=== PATIENT | female | born 1990 | race Caucasian/White ===

== ENCOUNTER 2023-03-10 12:39 | Emergency (ER) | payer OTHER, SELFPAY ==
[2023-03-10] VITALS (17 sets, daily range): BP systolic 129–183; BP diastolic 75–107; PULSE 76–134; RESP 9–18; TEMP 36.7; O2SAT 100
--- NOTE | ~2023-03-10 | XR_ITS ---
EXAMINATION: XR chest 2V DATE: 03/10/2023 13:14 INDICATION: Tachycardia. TECHNIQUE: Frontal and lateral views of the chest were obtained. COMPARISON: Chest 2 views 06/07/2017, CT abdomen and pelvis 09/21/2014 FINDINGS: The chest demonstrates clear lungs without pneumonia, pleural effusion, or pneumothorax. Th e heart size is normal. IMPRESSION: 1. No acute cardiopulmonary disease. Reviewed, dictated and finalized at location A.
--- NOTE | 2023-03-10 12:53 | ECG_ITS ---
Measurements Intervals [place] Rate: 135 P: 48 PA: 112 QRS: 50 QRSD: 85 T: 22 QT: 372 QTc: 559 Interpretive Statements SINUS TACHYCARDIA WITH SHORT PA INTERVAL NONSPECIFIC ST & T-WAVE ABNORMALITY- INFERIOR LEADS BASELINE ARTIFACT- I, II, III, AVR, AVL, AVF ABNORMAL ECG NO PREVIOUS ECG AVAILABLE FOR COMPARISON Electronically Signed On 03-10-2023 13:35:10 CDT by Red Jones D.O.
[2023-03-10] MEDS: ASPIRIN 81 MG CHEWABLE TABLET 324 MG PO (13:03)
[2023-03-10 13:07] LABS: Basophils Percent Auto 0.3 % (0.2-1.2); Eosinophils Absolute Auto 0.1 K/mm3 (0-0.3); Eosinophils Percent Auto 0.9 % (0-4.4); Hematocrit 41.9 % (37.0-47.0); Hemoglobin 14.1 g/dL (12.0-15.0); Immature Granulocyte Absolute 0.02 K/mm3 (0.00-0.031); Immature Granulocyte Percent A 0.3 % (0-0.5); Lymphocytes Absolute Auto 1.17 K/mm3 (0.9-3.2); Lymphocytes Percent Auto 16.8 % (18.3-44.2); Mean Corpuscular HGB Conc 33.7 g/dl (32-36); Mean Corpuscular Hemoglobin 27.9 pg (26-34); Mean Corpuscular Volume 82.8 fl (80-100); Mean Platelet Volume 9.6 fl (7.4-10.4); Monocytes Absolute Auto 0.4 K/mm3 (0.1-0.6); Monocytes Percent Auto 5.7 % (2.6-8.5); Neutrophils Absolute Auto 5.3 K/mm3 (1.3-6.7); Platelet Count Result 293 k/mm3 (150-375); Red Blood Count 5.06 M/mm3 (4.2-5.4); Red Cell Distribution Width 13.2 % (11.5-14.5)
[2023-03-10 13:17] LABS: Partial Thromboplastin Time 29.6 SECONDS (22.3-36.8); Prothrombin Time 13.2 Seconds (11.1-14.7)
[2023-03-10 13:18] LABS: Alanine Aminotransferase 31 U/L (6-35); Alkaline Phosphatase 62 U/L (38-126); Anion Gap 12 mmol/L (8-16); Aspartate Amino Transferase 24 U/L (14-36); Bilirubin,Total 0.6 mg/dL (0.2-1.3); Blood Urea Nitrogen 10 mg/dL (7-17); Calcium 9.4 mg/dL (8.4-10.2); Carbon Dioxide 25 mmol/L (22-30); Chloride 104 mmol/L (98-107); Estimated CRCL calculation 119 ml/min; Estimated Glomerular Filt Rate > 60; Glucose 119 mg/dL (65-110); Lipase 118 U/L (23-300); Potassium 3.6 mmol/L (3.4-5.0); Sodium 141 mmol/L (137-145)
[2023-03-10 13:30] LABS: Troponin I 0.015 ng/mL (0.000-0.034)
[2023-03-10] MEDS: LACTATED RINGERS 1,000 ML 999 ML IV CONT (14:12)
[2023-03-10 14:26] LABS: D Dimer 0.36 ug/mL (<0.48)
--- NOTE | 2023-03-10 15:36 | PC.NURSE ---
Pt's NSS is finished. RN disconnects pt at 1533.
--- NOTE | 2023-03-10 16:20 | ED.ARRPALP ---
HPI - Arrhythmia/Palpitations General Chief Complaint: Arrhythmia/Palpitations Stated Complaint: racing HR Time Seen by Provider: 03/10/23 13:11 History of Present Illness HPI narrative: 32-year-old female with history of likely panic attacks presents with palpitations, she has had multiple episodes of palpitations but they have been increasing over the last month, she has been seen and had negative work-up for this in the past, they usually resolve after she takes her as needed Xanax ordered by her doctor. No chest pain or trouble breathing nausea or vomiting. Related Data Allergies Allergy/AdvReac Type Severity Reaction Status Date / Time No Known Allergies Allergy Unverified 06/12/18 15:39 Review of Systems Review of Systems: CONST: No fever. HEENT: No sore throat C/V: Palpitations RESP: No cough GI: no abdominal : No dysuria. M/S: No joint pain. SKIN: No rash. NEURO: [No headache or focal numbness or weakness] PSYCH: Anxiety Exam Narrative: EXAMINATION OF ORGAN SYSTEMS/BODY AREAS: Constitutional: Vital signs per nursing GENERAL: Slightly anxious/tearful HEAD: Normal with no signs of head trauma. EYES: EOMI, conjunctiva normal ENT: Hearing grossly intact LUNGS: Nonlabored breathing. HEART: Initially tachycardic than normal ABD: [Soft], [nontender to palpation] EXT: Normal range of motion SKIN: [No rashes or lesions.] NEURO: [Alert and oriented x 3. No gross focal sensory or strength deficits.] PSYCH: Initially tearful/anxious affect which is Course Vital Signs Vital signs: Vital Signs Temperature 98.1 F 03/10/23 12:46 Pulse Rate 122 H 03/10/23 12:46 Respiratory Rate 18 03/10/23 12:46 Blood Pressure 183/107 H 03/10/23 12:46 Pulse Oximetry 100 03/10/23 12:46 Oxygen Delivery Room Air 03/10/23 12:46 Temperature 98.1 F 03/10/23 12:46 Pulse Rate 84 03/10/23 16:37 Respiratory Rate 12 03/10/23 16:37 Blood Pressure 129/75 03/10/23 16:37 Pulse Oximetry 100 03/10/23 16:37 Oxygen Delivery Room Air 03/10/23 12:46 MDM - Arrhythmia/Palpitations MDM Narrative Medical decision making narrative: Patient with history of anxiety/panic attacks presenting here with symptoms consistent with panic attack. On exam patient is [tachycardic and is tearful and anxious]. I will obtain EKG and chest xray to rule out arrhythmia/ischemia, pneumothorax, or other cause of chest discomfort/shortness of breath. Cardiac work-up also obtained as well as TSH. Chest x-ray on my independent interpretation does not show any acute abnormality, no pneumothorax or consolidation. EKG - 12-Lead: Performed at 1256. Interpreted by me. [Sinus rhythm]. Rate 135. [Normal] axis. TN-interval [normal]. QRS duration [normal]. QTc [normal]. [No ST segment elevation or depression]. [T-wave normal]. Impression: No EKG evidence of acute ischemia or dysrhythmia. Labs including troponin, TSH, D-dimer are normal. On reevaluation, patient is feeling better, repeat heart rate is 86, blood pressure 134/89. She is agreeable to outpatient follow-up and management at this time as she already has an appointment with the [facility] in a few days. Lab Data 03/10/23 13:00 03/10/23 13:00 Labs: Lab Results 03/10/23 03/10/23 03/10/23 Range/Units 12:59 13:00 14:13 WBC 7.0 (4.5-10.0) K/mm3 RBC 5.06 (4.2-5.4) M/mm3 Hgb 14.1 (12.0-15.0) g/dL Hct 41.9 (37.0-47.0) % MCV 82.8 (80-100) fl MCH 27.9 (26-34) pg MCHC 33.7 (32-36) g/dl RDW 13.2 (11.5-14.5) % Plt Count 293 (150-375) k/mm3 MPV 9.6 (7.4-10.4) fl Immature Gran % (Auto) 0.3 (0-0.5) % Neut % (Auto) 76.0 H (45.5-73.1) % Lymph % (Auto) 16.8 L (18.3-44.2) % [place] % (Auto) 5.7 (2.6-8.5) % Eos % (Auto) 0.9 (0-4.4) % Baso % (Auto) 0.3 (0.2-1.2) % Lymph # (Auto) 1.17 (0.9-3.2) K/mm3 [place] # (Auto) 0.4 (0.1-0.6) K/mm3 Eos # (Auto) 0.1
== END 2023-03-10 16:42 | disposition home or self-care (01) ==
PROVIDERS: Emergency Provider Emergency Medicine; PCP Internal Medicine
DX: R00.2 Palpitations (principal); F41.9 Anxiety disorder, unspecified; R00.0 Tachycardia, unspecified; R94.31 Abnormal electrocardiogram [ECG] [EKG]
CPT/HCPCS: 36415; 71046; 80053; 83690; 84443; 84484; 85025; 85380; 85610; 85730; 93005; 96360; 99284; A9270; J7120